=== PATIENT | male | born 1960 | race American Indian/Alaskan Native ===

== ENCOUNTER 2018-07-02 00:25 | Inpatient (IN) | payer OTHER ==
[2018-07-02 00:32] VITALS: O2SAT 98
--- NOTE | 2018-07-02 00:43 | ED PDOC ---
Psych Transfer Clearance - Clearance Statement Clearance Statement: Dr. Lopez reviewed vital signs, lab results and transfer papers. Patient clinically stable for psychiatric admission.
[2018-07-02] MEDS ORDERED: DiphenhydrAMINE 50 mg/ml Inj IM PRN (00:59)
[2018-07-02] MEDS ORDERED: Alum-Mag Hydrox-Simethicone Susp (30 mL) PO PRN (00:59)
[2018-07-02] MEDS ORDERED: Magnesium Hydroxide Susp 30 ml UD PO PRN (00:59)
--- NOTE | 2018-07-02 01:08 | PCM.BM ---
<Glynn Jaime P - Last Filed: 07/02/18 01:07> Treatment Plan Problems - Problems identified on initial assessmt Hopelessness/Helplessness Date Initiated: 07/02/18 Time Initiated: 01:07 Assessment reference: NA Status: Active Medication nonadherance Date Initiated: 07/02/18 Time Initiated: 01:07 Assessment reference: NA Status: Active Treatment assets and liabiliti Patient Assests: cooperative, ADL independent, negotiates basic needs, cognitively intact Patient Liabilities: live alone, financial problems, poor support system, substance abuse, medical problems - Milieu Protocol Maintain good personal hygiene: daily Encourage regular showers, daily Remind patient to perform daily oral care, daily Assist patient to perform ADL's Conduct patient checks and document Observation sheet: Q15 minutes Maintain personal safety: every shift Educate patient to report safety concerns to staff, every shift Monitor environment for contraband/sharps Medication safety: Monitor for expected outcome, potential side effects: every shift, Assess barriers to learning: every shift, Assess readiness for medication education: every shift <Angel Luis Shah J - Last Filed: 07/07/18 06:57> Family Contact Family involvement: Famlivic/SO not involved Family contact: Patient declines to allow family contact at present Family contact name: Pt denied. Family contacted how many times per week?: 0 - Goals for Treatment Patient goals for treatment: Pt reported that he would like medication management to address his depression, racing thoughts and intense mood swings. Pt reported that his suicidal ideations and intent have ceased and his sleep has already improved. Discharge/Continuing Care - Education Needs Education Needs: Patient Medication, Patient Diagnosis/Disease Process, Patient Coping Skills, Patient Anger Management skills, Patient Community resources, Patient Aftercare Safety Plan - Discharge Discharge Criteria: Tolerates medication w/o severe side effects, Free of Suicidal thoughts, Free of paranoid thoughts, Free of agitation, Normal sleep pattern, Ability to care for self, Reduction of target symptoms Discharge to:: Assisted, Other (Pt may be staying with friends once discharged. ) - Treatment Team Participation Patient/Family/SO Statement: 07/07/18 06:59 Pt seen in treatment team on 07/05/18. Pt reported that his sleep has improved on the Trazodone. Pt identified mood swings and continued depression as issues. Pt denied stressors for his depression initially, but spoke about his recent psychosocial losses (job and of father and friend). Pt denied current SI/HI and AVT hallucinations. Pt is oriented X4. Discussed with Family/SO: No Was Patient/Family/SO present at Treatment Team Meeting: Yes <Leslye Anderson - Last Filed: 07/07/18 09:44> - Diagnosis (1) Bipolar I disorder Status: Acute Interventions: harmacotherapy 07/07/18 09:43
[2018-07-02 08:17] LABS: BASO % 0.6 % (0.0-2.0); EOS # 0.2 K/uL (0.0-0.7); EOS % 2.6 % (0.0-4.0); HEMOGLOBIN 14.5 g/dL (12.0-18.0); LYMPH # 2.2 K/uL (1.0-4.3); LYMPH % 36.2 % (20.0-40.0); MEAN CELL VOLUME 96.1 fl (80.0-94.0); MEAN CORPUSCULAR HEMOGLOBIN 32.9 pg (27.0-31.0); MEAN CORPUSCULAR HGB CONC 34.3 g/dL (33.0-37.0); MEAN PLATELET VOLUME 8.1 fl (7.2-11.7); MONO # 0.7 K/uL (0.0-0.8); MONO % 11.6 % (0.0-10.0); NRBC % 0.1 % (0.0-0.0); RBC 4.4 Mil/uL (4.40-5.90); RED CELL DISTRIBUTION WIDTH 13.9 % (11.5-14.5); WHITE BLOOD COUNT 6.2 K/uL (4.8-10.8)
[2018-07-02 08:32] LABS: ALBUMIN 3.5 g/dL (3.5-5.0); ALT/SGPT 31 U/L (21-72); AST/SGOT 20 U/L (17-59); BLOOD UREA NITROGEN 16 mg/dl (9-20); CALCIUM 8.7 mg/dL (8.4-10.2); GFR NON-AFRICAN AMERICAN 52
[2018-07-02 08:57] LABS: T4 6.55 ug/dl (5.5-11.0)
--- NOTE | 2018-07-02 10:17 | PCM.PSYCH ---
Initial Psychiatric Evaluation - Initial Psychiatric Evaluation Type of Admission: Voluntary Legal Status: Capacity Chief Complaint (in patient's own words): "I tried to kill myself on the train tracks." Patient's Reaction to Hospitalization: HPI: 57 yo male w/ self reported h/o Bipolar Disorder, presents w/ worsening depression and suicidal ideation, w/ recent attempt by lying on train tracks (was talked off by passerby), worsening auditory hallucinations, sleep and appetite disturbances in the context of cocaine abuse. +Feelings of hopelessness/helplessness. PPHx: H/o 2 psychiatric hospitalizations, most recent in 2018. Reports being diagnosed w/ Bipolar Disorder 10 years ago. He reports h/o treatment w/ Depakote in the past. No current psychiatric treatment or follow-up. H/o prior suicide attempt 3 years ago by putting a gun in his mouth and pulling the trigger, but the gun jammed. PMHx: HTN, CAD (s/p 2 stents) on Plavix and Aspirin ALL: Fish SHx: Lives in a house, umemployed for 6 months, used to work as a printer in a [employer]; +Cocaine abuse, denies cig/alcohol use Current Medications: Active Medications Generic Name Dose Route Start Last Admin Trade Name Freq PRN Reason Stop Dose Admin Acetaminophen 650 mg 07/02/18 00:59 Tylenol 325mg Tab PO Q4 PRN pain level 4-7 Al Hydrox/Mg Hydrox/Simethicone 30 ml 07/02/18 00:59 Maalox Plus 30 Ml PO Q4 PRN Dyspepsia Amlodipine Besylate 5 mg 07/02/18 10:15 Norvasc PO DAILY [facility] Aspirin 81 mg 07/02/18 10:15 Ecotrin PO DAILY [facility] Clopidogrel Bisulfate 75 mg 07/02/18 10:15 Plavix PO DAILY [facility] Diphenhydramine HCl 50 mg 07/02/18 00:59 Benadryl IM Q6 PRN Extrapyramidal S/S Unable PO Diphenhydramine HCl 50 mg 07/02/18 00:59 Benadryl PO Q6 PRN Extrapyramidal Symptoms Diphenhydramine HCl 50 mg 07/02/18 01:03 Benadryl PO HS PRN Sleep Divalproex Sodium 500 mg 07/02/18 10:[address](*Bid*) PO BID [facility] Haloperidol 5 mg 07/02/18 00:59 Haldol PO Q4 PRN Agitation Haloperidol Lactate 5 mg 07/02/18 00:59 Haldol IM Q4 PRN Agitation, Unable to Take PO Lorazepam 2 mg 07/02/18 00:59 Ativan IM Q8 PRN Anxiety/Agitation,Unable PO Lorazepam 1 mg 07/02/18 00:59 Ativan PO Q8H PRN Anxiety/Agitation Magnesium Hydroxide 30 ml 07/02/18 00:59 Milk Of Magnesia PO HS PRN Constipation Risperidone 1 mg 07/02/18 22:00 Risperdal Tab PO HS [facility] Past Psychiatric History - Past Psychiatric History Previous Treatment History: Inpatient Pertinent Medical Hx (Current Medical&Sleep Prob, Allergies): Allergies Allergy/AdvReac Type Severity Reaction Status Date / Time FISH Allergy ITCHING Verified 07/02/18 03:07 Review of Systems - Psychiatric Psychiatric: As Per HPI, Abnormal Sleep Pattern, Anhedonia, Anxiety, Auditory Hallucinations, Behavioral Changes, Change in Appetite, Depression, Difficulty Concentrating, Hallucinations, Hopelessness, Irritability, Suicidal Ideation Mental Status Examination - Personal Presentation Personal Presentation: Looks stated age - Affect Affect: Constricted, Depressed - Motor Activity Motor Activity: Calm - Reliability in Providing Information Reliability in Providing Information: Good - Speech Speech: Organized, Coherent - Mood Mood: Depressed - Formal Thought Process Formal Thought Process: Hallucinations - Hallucinations/Delusions Hallucinations: Auditory - Obsessions/Compulsions Obsessions: No Compulsions: No - Cognitive Functions Orientation: Person, Place, Situation, Time Sensorium: Alert Attention/Concentration: Attentive Judgement: Intact, as evidence by: Insight regarding need for hospitalization Memory: Recent intact, as evidence by: Ability to recall events of the day, Remote intact, as evidenced by: Abilit to recall sig. life events, Remote intact, as evidenced by: Ability to recall historical events - Risk Risk: Suicidal - Strength & Assets Inventory Strength & Assets Inventory: Cooperative - Limitations Limitations: Living alone DSM 5 DX - DSM 5 DSM 5 Diagnosis: Bipolar Disorder w/ Psychotic Features vs Substance Induced Mood and Psychotic Disorders - Recommended/Plan of Treatment Treatment Recommendations and Plan of Treatment: Bipolar Disorder w/ Psychotic Features vs Substance Induced Mood and Psychotic Disorders -Admit to psychiatry unit -Individual and group therapy -Medicine consult -Start Depakote 500 mg PO BID -Start Risperdal 1 mg PO HS -Psychoeducation -Disposition planning Projected ELOS: 5-10 days Discharge Plan and Discharge Criteria: Discharge when patient is psychiatrically stable - Smoking Cessation Smoking Cessation Initiated: No Reason for not providing: Not indicated
[2018-07-02] MEDS: Divalproex 500 mg DR(BID formulation) PO SCH ×2 (11:08→17:16)
--- NOTE | 2018-07-02 12:48 | CP.PCM.CON ---
History of Present Illness - History of Present Illness History of Present Illness: 57 y/o male with PMH Bipolar disorder( diagnosed 10 years ago ) , HTN , CAD with 2 stents, cocaine abuse ( last use 3 days ago) , admitted to psych unit for management of worsening depression and suicidal ideation .As per patient he was diagnosed with bipolar disorder 10 years ago and has been on treatment but it is not working . He has prior suicidal attempts and psychiatric admission.This time patient admitted again for suicidal ideation , lying on the train tracks but changing his mind from bystanders and going to [facility] for help. At present feeling well physically , denies any chest pain , SOB, palpitations, PND, orthopnea , urinary symptoms or changes in bowel movements Allergies ; Fish PMH ; Bipolar disorder , HTN, CAD s/p stent, dyslipidemia Medications; Plavix , ASA, norvasc, Lipitor Surgery:None Family history:none Social history :Lives in [place] with a freind, single has no children , does not work , smokes 3 cigg/day , denies ETOH use , uses cocaine ( last use 3 days ago) ROS ; 12 point review of system negative except above Code status : full PMD ;Eugene Caruso Review of Systems - Review of Systems All systems: reviewed and no additional remarkable complaints except Past Patient History - Infectious Disease Hx of Infectious Diseases: None - Tetanus Immunizations Tetanus Immunization: Unknown - Past Medical History & Family History Past Medical History?: Yes Past Family History: Reviewed and not pertinent - Past Social History Smoking Status: Light Smoker < 10 Cigarettes Daily Chewing Tobacco Use: No Cigar Use: No Alcohol: None Drugs: Cocaine Home Situation {Lives}: Friends Domestic Violence: Negative - CARDIAC Hx Hypercholesterolemia: Yes Hx Hypertension: Yes - GENITOURINARY/GYNECOLOGICAL Hx Sexually Transmitted Disorders: (denies + for trichomonas in UA) - PSYCHIATRIC Hx Depression: Yes Hx Substance Use: Yes (cocaine) - SURGICAL HISTORY Hx Coronary Stent: Yes - ANESTHESIA Hx Anesthesia: Yes Hx Anesthesia Reactions: No Hx Malignant Hyperthermia: No Has any member of the family had a problem w/ anesthesia?: No Meds Allergies/Adverse Reactions: Allergies Allergy/AdvReac Type Severity Reaction Status Date / Time FISH Allergy ITCHING Verified 07/02/18 03:07 - Medications Medications: Current Medications Acetaminophen (Tylenol 325mg Tab) 650 mg PO Q4 PRN PRN Reason: pain level 4-7 Al Hydrox/Mg Hydrox/Simethicone (Maalox Plus 30 Ml) 30 ml PO Q4 PRN PRN Reason: Dyspepsia Amlodipine Besylate (Norvasc) 5 mg PO DAILY [facility] Last Admin: 07/02/18 11:09 Dose: 5 mg Aspirin (Ecotrin) 81 mg PO DAILY [facility] Last Admin: 07/02/18 11:09 Dose: 81 mg Clopidogrel Bisulfate (Plavix) 75 mg PO DAILY [facility] Last Admin: 07/02/18 11:08 Dose: 75 mg Diphenhydramine HCl (Benadryl) 50 mg IM Q6 PRN PRN Reason: Extrapyramidal S/S Unable PO Diphenhydramine HCl (Benadryl) 50 mg PO Q6 PRN PRN Reason: Extrapyramidal Symptoms Diphenhydramine HCl (Benadryl) 50 mg PO HS PRN PRN Reason: Sleep Divalproex Sodium (Depakote Dr(*Bid*)) 500 mg PO BID [facility] Last Admin: 07/02/18 11:08 Dose: 500 mg Haloperidol (Haldol) 5 mg PO Q4 PRN PRN Reason: Agitation Haloperidol Lactate (Haldol) 5 mg IM Q4 PRN PRN Reason: Agitation, Unable to Take PO Lorazepam (Ativan) 2 mg IM Q8 PRN PRN Reason: Anxiety/Agitation,Unable PO Lorazepam (Ativan) 1 mg PO Q8H PRN PRN Reason: Anxiety/Agitation Magnesium Hydroxide (Milk Of Magnesia) 30 ml PO HS PRN PRN Reason: Constipation Risperidone (Risperdal Tab) 1 mg PO HS [facility] Physical Exam - Constitutional Appears: Non-toxic, No Acute Distress - Head Exam Head Exam: ATRAUMATIC, NORMAL INSPECTION, NORMOCEPHALIC - Eye Exam Eye Exam: EOMI, Normal appearance, PERRL Pupil Exam: NORMAL ACCOMODATION - ENT Exam ENT Exam: Mucous Membranes Moist, Normal Exam - Neck Exam Neck exam: Positive for: Full Rom, Normal Inspection - Respiratory Exam Respiratory Exam: Clear to Auscultation Bilateral, NORMAL BREATHING PATTERN. absent: Rales, Rhonchi, Wheezes - Cardiovascular Exam Cardiovascular Exam: REGULAR RHYTHM, RRR, +S1, +S2. absent: JVD - GI/Abdominal Exam GI & Abdominal Exam: Normal Bowel Sounds, Soft. absent: Distended, Guarding, Re bound, Tenderness - Rectal Exam Rectal Exam: Deferred - Extremities Exam Extremities exam: Positive for: normal capillary refill, normal inspection. Negative for: calf tenderness, pedal edema - Back Exam Back exam: NORMAL INSPECTION - Neurological Exam Neurological exam: Alert, CN II-XII Intact, Oriented x3 - Psychiatric Exam Psychiatric exam: Normal Affect - Skin Skin Exam: Dry, Intact, Normal Color, Warm Results - Vital Signs Recent Vital Signs: Last Vital Signs Temp 98.2 F 07/02/18 09:00 Pulse 72 07/02/18 09:00 Resp 19 07/02/18 09:00 BP 161/102 H 07/02/18 11:09 Pulse Ox 98 07/02/18 00:29 - Labs Result Diagrams: 07/02/18 07:30 07/02/18 07:30 Labs: Laboratory Results - last 24 hr 07/02/18 07/02/18 07/02/18 07:30 07:30 07:30 WBC 6.2 RBC 4.40 Hgb 14.5 Hct 42.2 MCV 96.1 H MCH 32.9 H MCHC 34.3 RDW 13.9 Plt Count 274 MPV 8.1 Neut % (Auto) 49.0 L Lymph % (Auto) 36.2 [place] % (Auto) 11.6 H Eos % (Auto) 2.6 Baso % (Auto) 0.6 Neut # (Auto) 3.0 Lymph # (Auto) 2.2 [place] # (Auto) 0.7 Eos # (Auto) 0.2 Baso # (Auto) 0.0 Sodium 139 Potassium 3.9 Chloride 104 Carbon Dioxide 26 Anion Gap 13 BUN 16 Creatinine 1.4 Est GFR ( Amer) > 60 Est GFR (Non-Af Amer) 52 Random Glucose 93 Calcium 8.7 Total Bilirubin 0.4 AST 20 ALT 31 Alkaline Phosphatase 132 H Total Protein 6.9 Albumin 3.5 Globulin 3.4 Albumin/Globulin Ratio 1.0 Triglycerides 75 Cholesterol 143 LDL Cholesterol Direct 86 HDL Cholesterol 37 Thyroxine (T4) 6.55 TSH 3rd Generation 0.73 Assessment & Plan - Assessment and Plan (Free Text) Assessment: 57 y/o male with PMH HTN, dyslipidemia, bipolar disorde , CAd admitted for worsening depression with suicidal thoughts and ideation Medicine consulted for management . 1. Psychiatric disorder / bipolar with depression management as per psych 2.Hypertension on Norvasc 3. CAD with stents on Statin , ASa and plavix
[2018-07-02 19:43] LABS: SQUAMOUS EPITHIAL < 1 /hpf (0-5); URINE BILIRUBIN NEGATIVE (NEGATIVE); URINE BLOOD NEGATIVE (NEGATIVE); URINE CLARITY CLEAR (Clear); URINE COLOR STRAW (YELLOW); URINE GLUCOSE (UA) NEG (NEGATIVE); URINE LEUKOCYTE ESTERASE NEG Leu/uL (Negative); URINE PROTEIN NEGATIVE (NEGATIVE); URINE UROBILINOGEN 0.2-1.0 mg/dL (0.2-1.0)
[2018-07-03] MEDS: Divalproex 500 mg DR(BID formulation) PO SCH ×2 (12:21→17:12)
--- NOTE | 2018-07-03 14:37 | PCM.PYCHPN ---
Psychiatric Progress Note - Psychiatric Progress Note Patient seen today, length of contact: pt evaluated discussed with team chart reviewed Patient Chief Complaint: I am feeling down Problems Identified/Issues Discussed: pt evaluated, presenting with depressed mood and affect, feeling hopeless and helpless, related that to recent loss of his father, loosing his job and his current living situation , discussed with patient starting zoloft, motivational therapy provided discussing effect of cocaine use on current mental status, encouraged pt to attend groups, pt denied current active thoughts of self harm on the unit , denied perceptual disturbances DSM 5 Symptoms Update: bipolar disorder depressed cocaine use disorder Medication Change: Yes (start zoloft) Medical Record Reviewed: Yes Mental Status Examination - Cognitive Function Orientation: Person, Place, Situation, Time Memory: Intact Attention: WNL Concentration: WNL Association: WNL Fund of Knowledge: WNL Decription of patient's judgement and insights: partial insight, poor judgment - Mood Mood: Depressed - Affect Affect: Constricted, Depressed - Speech Speech: Soft - Formal Thought Process Formal Thought Process: Circumstantial Psychotic Thoughts and Behaviors: pt denied any current psychotic symptoms - Suicidal Ideation Suicidal Ideation: No - Homicidal Ideation Homicidal Ideation: No Goal/Treatment Plan - Goal/Treatment Plan Need for Continued Stay: Severe depression anxiety, Discharge may exacerbated symptoms Progress Toward Problem(s) and Goals/Treatment Plan: depakote 500mg bid start zoloft 25mg daily motivational, group and supportive therapy
[2018-07-04] MEDS: Divalproex 500 mg DR(BID formulation) PO SCH ×2 (10:09→18:03)
--- NOTE | 2018-07-04 15:23 | PCM.PYCHPN ---
Psychiatric Progress Note - Psychiatric Progress Note Patient seen today, length of contact: pt evaluated discussed with team chart reviewed Patient Chief Complaint: I still have suicidal thoughts Problems Identified/Issues Discussed: pt evaluated continues to present with depressed mood and affect, continues to report passive suicidal ideation feeling hopeless and helpless, discussed with patient increasing dose of zoloft, pt also reported poor slep with early insomnia discussed starting trazodone , motivational therapy provided discussing effect of cocaine use on current mental status, encouraged pt to attend groups, pt denied current active thoughts of self harm on the unit , denied perceptual disturbances Medication Change: Yes (increase zoloft) Medical Record Reviewed: Yes Mental Status Examination - Cognitive Function Orientation: Person, Place, Situation, Time Memory: Intact Attention: WNL Concentration: WNL Association: WNL Fund of Knowledge: WNL Decription of patient's judgement and insights: partial insight, poor judgment - Mood Mood: Depressed - Affect Affect: Constricted, Depressed - Speech Speech: Soft - Formal Thought Process Formal Thought Process: Circumstantial Psychotic Thoughts and Behaviors: pt denied any current psychotic symptoms - Suicidal Ideation Suicidal Ideation: No - Homicidal Ideation Homicidal Ideation: No Goal/Treatment Plan - Goal/Treatment Plan Need for Continued Stay: Severe depression anxiety, Discharge may exacerbated symptoms Progress Toward Problem(s) and Goals/Treatment Plan: depakote 500mg bid increase zoloft 50mg daily trazodone 100mg qhs motivational, group and supportive therapy
[2018-07-05] MEDS: Divalproex 500 mg DR(BID formulation) PO SCH ×2 (10:00→19:09)
--- NOTE | 2018-07-05 13:50 | PCM.PYCHPN ---
Psychiatric Progress Note - Psychiatric Progress Note Patient seen today, length of contact: pt evaluated discussed with team chart reviewed Patient Chief Complaint: I slept better yesterday Problems Identified/Issues Discussed: pt evaluated evaluated with treatment team, reported improved sleep with trazodone, continues to present with depressed mood and affect, relates that to his current financial difficulties and instability of the living situation, pt declined to be on abilify, discussed increasing zoloft and depakote for mood stabilization, pt denied any current side effects encouraged pt to attend groups, pt denied current active thoughts of self harm on the unit , denied perceptual disturbances DSM 5 Symptoms Update: bipolar disorder depressed cocaine use disorder Medication Change: Yes (increase zoloft) Medical Record Reviewed: Yes Mental Status Examination - Cognitive Function Orientation: Person, Place, Situation, Time Memory: Intact Attention: WNL Concentration: WNL Association: WNL Fund of Knowledge: WNL Decription of patient's judgement and insights: partial insight, poor judgment - Mood Mood: Depressed - Affect Affect: Constricted, Depressed - Speech Speech: Soft - Formal Thought Process Formal Thought Process: Circumstantial Psychotic Thoughts and Behaviors: pt denied any current psychotic symptoms - Suicidal Ideation Suicidal Ideation: No - Homicidal Ideation Homicidal Ideation: No Goal/Treatment Plan - Goal/Treatment Plan Need for Continued Stay: Severe depression anxiety, Discharge may exacerbated symptoms Progress Toward Problem(s) and Goals/Treatment Plan: depakote 500mg bid increase zoloft 50mg daily trazodone 100mg qhs motivational, group and supportive therapy
[2018-07-06] MEDS: Divalproex 500 mg DR(BID formulation) PO SCH ×2 (08:39→17:40)
--- NOTE | 2018-07-06 15:01 | PCM.PYCHPN ---
Psychiatric Progress Note - Psychiatric Progress Note Patient seen today, length of contact: pt evaluated discussed with team chart reviewed Patient Chief Complaint: I am getting better Problems Identified/Issues Discussed: pt evaluated , reported improved sleep, mood less depressed, affect less constricted, no reported side effects of medications, encouraged pt to attend groups, pt denied current active thoughts of self harm on the unit , denied perceptual disturbances DSM 5 Symptoms Update: bipolar disorder depressed cocaine abuse Medication Change: No (increase zoloft) Medical Record Reviewed: Yes Mental Status Examination - Cognitive Function Orientation: Person, Place, Situation, Time Memory: Intact Attention: WNL Concentration: WNL Association: WNL Fund of Knowledge: [facility] Decription of patient's judgement and insights: partial insight, poor judgment - Mood Mood: Depressed - Affect Affect: Constricted - Speech Speech: Appropriate - Formal Thought Process Formal Thought Process: No Impairment Psychotic Thoughts and Behaviors: pt denied any current psychotic symptoms - Suicidal Ideation Suicidal Ideation: No - Homicidal Ideation Homicidal Ideation: No Goal/Treatment Plan - Goal/Treatment Plan Need for Continued Stay: Severe depression anxiety, Discharge may exacerbated symptoms Progress Toward Problem(s) and Goals/Treatment Plan: depakote 500mg bid zoloft 50mg daily trazodone 100mg qhs motivational, group and supportive therapy
[2018-07-06 17:40] VITALS: RESP 18
[2018-07-07] MEDS: Divalproex 500 mg DR(BID formulation) PO SCH (09:32)
[2018-07-07 09:34] VITALS: BP 146/88; PULSE 77
[2018-07-07 09:57] VITALS: TEMP 98.8
--- NOTE | 2018-07-07 16:03 | PCM.PYCHDC ---
Mental Status Examination - Mental Status Examination Orientation: Person, Place, Situation Memory: Intact Mood: Neutral Affect: Broad Speech: Appropriate Attention: WNL Concentration: WNL Association: WNL Fund of Knowledge: WNL Formal Thought Process: No Impairment Description of patient's judgement and insight: partial insight, poor judgment Psychotic Thoughts and Behaviors: pt denied any current psychotic symptoms Suicidal Ideation: No Current Homicidal Ideation?: No Discharge Summary - Discharge Note Reason for Hospitalization: 57 yo male w/ self reported h/o Bipolar Disorder, presents w/ worsening depression and suicidal ideation, w/ recent attempt by lying on train tracks (was talked off by passerby), worsening auditory hallucinations, sleep and appetite disturbances in the context of cocaine abuse. +Feelings of hopelessness/helplessness. Consultations:: List each consultation separately and include: 1. Reason for request. 2. Findings. 3. Follow-up Summary of Hospital Course include:: 1. Description of specific treatment plan utilized for patients during their course of treatmen. 2. Summarize the time- course for resolution of acute symptoms and/or regressed behaviors. 3. Describe issues identified and worked on during hospitalization. 4. Describe medication utilized. 5. Describe medical problems identified and treated. 6. Reassessment of suicide risk Summary of Hospital Course: pt on admission was sttarted on depakote for mood stabilization , zoloft for depression motivational therapy provided in reference to cocaine use pt was compliant with treatment, no reported side effects of medications on discharge mental status wa stable pt denied any current suicidal or homicidal ideation denied perceptual disturbances - Diagnosis (1) Bipolar I disorder Status: Acute - Final Diagnosis (DSM 5) Condition upon Discharge: STABLE DSM 5: bipolar I disorder cocaine induced psychosis cocaine abuse Disposition: HOME/ ROUTINE Follow-up Treatment Plan: depakote 500mg bid zoloft 50mg daily trazodone 100mg qhs motivational, group and supportive therapy Prescriptions/Medication Reconciliation: Divalproex [Depakote DR(*BID*)] 500 mg PO BID 30 Days #60 tcp Sertraline [Zoloft] 50 mg PO DAILY 30 Days #30 tab traZODone [Desyrel] 100 mg PO HS 30 Days #30 tab - Antipsychotic Medications Pt discharged on 2 or more routine antipsychotic medications: No
== END 2018-07-07 12:08 | disposition home or self-care (01) | DRG 430 ==
LOC: H.ER 00:25 → H.ERHOLD 00:42 → H.PSYCH 00:57
PROVIDERS: ADMIT Psychiatry & Neurology Psychiatry; ATTEND Psychiatry & Neurology Psychiatry
PROC: GZHZZZZ Group Psychotherapy (ICD-10-PCS; principal; 2018-07-02)
PROC: GZ56ZZZ Individual Psychotherapy, Supportive (ICD-10-PCS; 2018-07-02)
PROC: HZ57ZZZ Individual Psychotherapy for Substance Abuse Treatment, Motivational Enhancement (ICD-10-PCS; 2018-07-02)
DX: F31.9 Bipolar disorder, unspecified (principal); F14.10 Cocaine abuse, uncomplicated; R45.851 Suicidal ideations; I25.10 Atherosclerotic heart disease of native coronary artery without angina pectoris; Z95.5 Presence of coronary angioplasty implant and graft; G47.00 Insomnia, unspecified; E78.00 Pure hypercholesterolemia, unspecified; E78.5 Hyperlipidemia, unspecified; Z91.013 Allergy to seafood; I10 Essential (primary) hypertension; Z79.02 Long term (current) use of antithrombotics/antiplatelets; Z79.82 Long term (current) use of aspirin; F17.210 Nicotine dependence, cigarettes, uncomplicated

== ENCOUNTER 2018-07-13 00:21 | Inpatient (IN) | payer OTHER ==
[2018-07-13 00:37] VITALS: O2SAT 98
--- NOTE | 2018-07-13 00:42 | ED PDOC ---
Psych Transfer Clearance - Clearance Statement Clearance Statement: Lab results and transfer papers reviewed on previous shift by Dr Efren Singh. On arrival to ED vital signs are stable. Patient clinically stable for psychiatric admission.
--- NOTE | 2018-07-13 01:20 | PCM.BM ---
<Estevan Loyola - Last Filed: 07/13/18 01:18> Treatment Plan Problems - Problems identified on initial assessmt Hopelessness/Helplessness Date Initiated: 07/13/18 Time Initiated: Assessment reference: NA Status: Active Altered Sleep Patterns Date Initiated: 07/13/18 Time Initiated: :20 Assessment reference: NA Status: Active Medication nonadherence Date Initiated: 07/13/18 Time Initiated: Assessment reference: NA Status: Active Treatment assets and liabiliti Patient Assests: cooperative, ADL independent, negotiates basic needs, cognitively intact Patient Liabilities: financial problems, poor support system, substance abuse, medical problems, other (Homeless) - Milieu Protocol Maintain good personal hygiene: every shift Encourage regular showers, every shift Remind patient to perform daily oral care, every shift Assist patient to perform ADL's Conduct patient checks and document Observation sheet: Q15 minutes Maintain personal safety: every shift Educate patient to report safety concerns to staff, every shift Monitor environment for contraband/sharps Medication safety: Monitor for expected outcome, potential side effects: every shift, Assess barriers to learning: every shift, Assess readiness for medication education: every shift <Wendie Cast - Last Filed: 07/13/18 09:34> - Diagnosis (1) Bipolar I disorder Status: Acute Interventions: Medication management, Individual and group therapy, Psychoeducation 07/13/18 09:34 (2) Cocaine use disorder Status: Acute Interventions: Medication management, Individual and group therapy, Psychoeducation 07/13/18 09:34 <Isatu Vargas - Last Filed: 07/14/18 14:21> Family Contact Family involvement: Famliy/SO not involved Family contact: Patient declines to allow family contact at present Discharge/Continuing Care - Education Needs Education Needs: Patient Medication, Patient Diagnosis/Disease Process, Patient Coping Skills, Patient Community resources, Patient Health Practices/Safety, Patient Personal Hygiene/Grooming, Patient Aftercare Safety Plan - Discharge Discharge Criteria: Tolerates medication w/o severe side effects, Free of Suicidal thoughts, Normal sleep pattern, Ability to care for self, Reduction of target symptoms Discharge to:: Home, Alf - Additional Comments 07/14/18 14:19 Pt seen and discussed in team meeting. Reason for hospitalization reviewed and discussed. Pt reported he was referred to [facility] due to worsening depression and suicide thoughts with plan to ingest rat poison. Pt also reported that he was hearing voices to hurt himself. Pt reported that his girlfriend called 911. Pt reported hearing voices all the time. Pt reported using cocaine and when inquired about frequency, pt stated I dont use often. Pt reported that his sleep is lousy and his appetite is ok. Pt reported feeling depressed and anxious. Pt is non-compliant with outpatient treatment and prescribed medications. Log Carrier Operator inquired about discrepancies in pts chart in gards to housing and stable living conditions. Pts previous chart from admission on 07/07/2018 reflected that pt was residing with his sister in [place]; [facility] chart reflects that pt resides in [place] with girlfriend and also hx of homelessness. Pt denied being homeless and reported that he resides with his friend in [place], [place]. Pt reported having people that look out for me when asked about financial resources. pt's social and medical issues reviewed. Pt's medications reviewed. Tx plan reviewed and discussed, pt verbalized agreement to the following: Q15, daily psychiatric evaluation, filling winder management, activity and clinical group participation, and SW follow up. Pt reported he galloway snot wish for anyone to be contacted regarding his care. Pt reported he has no collateral information to be provided. SW to continue to follow case. - Treatment Team Participation Discussed with Family/SO: No Was Patient/Family/SO present at Treatment Team Meeting: Yes
[2018-07-13] MEDS ORDERED: Magnesium Hydroxide Susp 30 ml UD PO PRN (01:22)
[2018-07-13] MEDS ORDERED: DiphenhydrAMINE 50 mg/ml Inj IM PRN (01:22)
[2018-07-13] MEDS ORDERED: Alum-Mag Hydrox-Simethicone Susp (30 mL) PO PRN (01:22)
[2018-07-13 07:49] LABS: BASO % 0.3 % (0.0-2.0); EOS # 0.2 K/uL (0.0-0.7); EOS % 3.4 % (0.0-4.0); HEMOGLOBIN 14.8 g/dL (12.0-18.0); LYMPH # 2.9 K/uL (1.0-4.3); LYMPH % 42.7 % (20.0-40.0); MEAN CELL VOLUME 99.3 fl (80.0-94.0); MEAN CORPUSCULAR HEMOGLOBIN 31.9 pg (27.0-31.0); MEAN CORPUSCULAR HGB CONC 32.1 g/dL (33.0-37.0); MEAN PLATELET VOLUME 8.5 fl (7.2-11.7); MONO # 0.8 K/uL (0.0-0.8); MONO % 11.2 % (0.0-10.0); NEUT # 2.9 K/uL (1.8-7.0); NEUT % 42.4 % (50.0-75.0); NRBC % 0.2 % (0.0-0.0); RBC 4.66 Mil/uL (4.40-5.90); RED CELL DISTRIBUTION WIDTH 14.3 % (11.5-14.5); WHITE BLOOD COUNT 6.7 K/uL (4.8-10.8)
[2018-07-13 08:06] LABS: ALBUMIN 3.5 g/dL (3.5-5.0); ALT/SGPT 27 U/L (21-72); AST/SGOT 24 U/L (17-59); BLOOD UREA NITROGEN 15 mg/dl (9-20); CALCIUM 8.7 mg/dL (8.4-10.2); GFR NON-AFRICAN AMERICAN > 60; HDL CHOLESTEROL 45 MG/DL (30-70)
[2018-07-13 08:17] LABS: LDL CHOLESTEROL 96 mg/dL (0-129)
[2018-07-13 08:21] LABS: T4 6.79 ug/dl (5.5-11.0)
--- NOTE | 2018-07-13 09:36 | PCM.PSYCH ---
Initial Psychiatric Evaluation - Initial Psychiatric Evaluation Type of Admission: Voluntary Legal Status: Capacity Chief Complaint (in patient's own words): "I wanted to kill myself by taking rat poison." Patient's Reaction to Hospitalization: HPI: 57 yo male w/ h/o Bipolar Disorder and Cocaine Use disorder, recently admitted to [facility] (07/02/18-07/07/18), presents w/ worsening depression and suicidal ideation to overdose on rat, w/ recent attempt 3 days ago by taking an excess of cocaine to try to induce a heart attack, worsening auditory hallucinations (CAH to kill himself), sleep and appetite disturbances in the context of continued cocaine abuse. +Feelings of hopelessness/helplessness. PPHx: H/o 3 psychiatric hospitalizations, most recent at [facility] (07/02/18-07/07/18). He was discharged on Depakote 500 mg PO BID, Zoloft 50 mg PO Daily and Trazodone 100 mg PO HS at that time. Reports being diagnosed w/ Bipolar Disorder 10 years ago. H/o prior suicide attempt 3 years ago by putting a gun in his mouth and pulling the trigger, but the gun jammed. PMHx: HTN, CAD (s/p 2 stents) on Plavix and Aspirin ALL: Fish, [place] SHx: Homeless, umemployed for 6 months, used to work as a printer in a printing factory; +Cocaine abuse, denies alcohol use; smokes 3 cig/day Current Medications: Active Medications Generic Name Dose Route Start Last Admin Trade Name Freq PRN Reason Stop Dose Admin Acetaminophen 650 mg 07/13/18 01:22 Tylenol 325mg Tab PO Q4 PRN Pain, moderate (4-7) Al Hydrox/Mg Hydrox/Simethicone 30 ml 07/13/18 01:22 Maalox Plus 30 Ml PO Q4 PRN Dyspepsia Amlodipine Besylate 10 mg 07/13/18 09:00 07/13/18 08:47 Norvasc PO 10 mg DAILY GRISEL Administration Aspirin 81 mg 07/13/18 09:00 07/13/18 08:46 Ecotrin PO 81 mg DAILY GRISEL Administration Atorvastatin Calcium 10 mg 07/13/18 09:00 07/13/18 08:47 Lipitor PO 10 mg DAILY GRISEL Administration Clopidogrel Bisulfate 75 mg 07/13/18 09:00 07/13/18 08:46 Plavix PO 75 mg DAILY GRISEL Administration Diphenhydramine HCl 50 mg 07/13/18 01:22 Benadryl IM Q6 PRN Extrapyramidal S/S Unable PO Diphenhydramine HCl 50 mg 07/13/18 01:22 Benadryl PO Q6 PRN Extrapyramidal Symptoms Diphenhydramine HCl 50 mg 07/13/18 01:22 Benadryl PO HS PRN Sleep Divalproex Sodium 500 mg 07/13/18 09:30 Depdavid Thompson(*Bid*) PO BID GRISEL Haloperidol 5 mg 07/13/18 01:22 Haldol PO Q4 PRN Agitation Haloperidol Lactate 5 mg 07/13/18 01:22 Haldol IM Q4 PRN Agitation, Unable to Take PO Lorazepam 1 mg 07/13/18 01:22 Ativan IM Q8 PRN Anxiety/Agitation,Unable PO Lorazepam 1 mg 07/13/18 01:22 Ativan PO Q8 PRN Anxiety/Agitation Magnesium Hydroxide 30 ml 07/13/18 01:22 Milk Of Magnesia PO HS PRN Constipation Risperidone 1 mg 07/13/18 22:00 Risperdal Tab PO HS GRISEL Sertraline HCl 100 mg 07/13/18 09:30 Zoloft PO DAILY GRISEL Trazodone HCl 100 mg 07/13/18 09:28 Desyrel PO HS PRN Insomnia Past Psychiatric History - Past Psychiatric History Previous Treatment History: Inpatient Pertinent Medical Hx (Current Medical&Sleep Prob, Allergies): Allergies Allergy/AdvReac Type Severity Reaction Status Date / Time FISH Allergy ITCHING Verified 07/02/18 03:07 turkey Allergy RASH Verified 07/13/18 02:14 Aspirin [Ecotrin] 81 mg PO DAILY tabec 07/07/18 Atorvastatin [Lipitor] 10 mg PO DAILY tab 07/07/18 Clopidogrel [Plavix] 75 mg PO DAILY tab 07/07/18 Divalproex [Davion THOMPSON(*BID*)] 500 mg PO BID 30 Days #60 tcp 07/07/18 Sertraline [Zoloft] 50 mg PO DAILY 30 Days #30 tab 07/07/18 amLODIPine [Norvasc] 10 mg PO DAILY tab 07/07/18 traZODone [Desyrel] 100 mg PO HS 30 Days #30 tab 07/07/18 Review of Systems - Psychiatric Psychiatric: As Per HPI, Abnormal Sleep Pattern, Anhedonia, Anxiety, Auditory Hallucinations, Change in Appetite, Depression, Difficulty Concentrating, Hallucinations, Hopelessness, Irritability, Mood Swings, Suicidal Ideation Mental Status Examination - Personal Presentation Personal Presentation: Looks stated age - Affect Affect: Constricted, Depressed - Motor Activity Motor Activity: Calm - Reliability in Providing Information Reliability in Providing Information: Fair - Speech Speech: Organized, Coherent - Mood Mood: Depressed - Formal Thought Process Formal Thought Process: No Impairment Additional comments: Last heard AH last night - Obsessions/Compulsions Obsessions: No Compulsions: No - Cognitive Functions Orientation: Person, Place, Situation, Time Sensorium: Alert Attention/Concentration: Attentive Estimate of Intelligence: Average Judgement: Intact, as evidence by: Insight regarding need for hospitalization Memory: Recent intact, as evidence by: Ability to recall events of the day, Remote intact, as evidenced by: Abilit to recall sig. life events, Remote intact, as evidenced by: Ability to recall historical events - Risk Risk: Suicidal - Strength & Assets Inventory Strength & Assets Inventory: Cooperative - Limitations Limitations: Other (Homelessness; Poverty) DSM 5 DX - DSM 5 DSM 5 Diagnosis: Bipolar Disorder; Cocaine Use Disorder - Recommended/Plan of Treatment Treatment Recommendations and Plan of Treatment: Bipolar Disorder; Cocaine Use Disorder -Admit to psychiatry unit -Individual and group therapy -Medicine consult -Continue Depakote 500 mg PO BID; will check VPA level -Increase Zoloft -Start Risperdal 1 mg PO HS -Psychoeducation -Disposition planning Projected ELOS: 5-10 days Discharge Plan and Discharge Criteria: Discharge when patient is psychiatrically stable - Smoking Cessation Smoking Cessation Initiated: No Reason for not providing: Patient declined
--- NOTE | 2018-07-13 11:18 | CP.PCM.CON ---
History of Present Illness - History of Present Illness History of Present Illness: 57 yo male with history of Bipolar DO, HTN, CAD and Cocaine Abuse admitted to Psyche unit because of worsening depression and suicidal ideation. Patient requested that his diet be switched to regular. Review of Systems - Review of Systems All systems: reviewed and no additional remarkable complaints except (aside from those mentioned above, 12 point system review were negative by me) Past Patient History - Infectious Disease Hx of Infectious Diseases: None - Tetanus Immunizations Tetanus Immunization: Unknown - Past Medical History & Family History Past Medical History?: Yes - Past Social History Smoking Status: Light Smoker < 10 Cigarettes Daily Chewing Tobacco Use: No Cigar Use: No Alcohol: None Drugs: Cocaine Home Situation {Lives}: Friends - CARDIAC Hx Hypercholesterolemia: Yes Hx Hypertension: Yes - GENITOURINARY/GYNECOLOGICAL Hx Sexually Transmitted Disorders: (denies + for trichomonas in UA) - PSYCHIATRIC Hx Substance Use: Yes (cocaine) - SURGICAL HISTORY Hx Coronary Stent: Yes - ANESTHESIA Hx Anesthesia: Yes Hx Anesthesia Reactions: No Hx Malignant Hyperthermia: No Meds Allergies/Adverse Reactions: Allergies Allergy/AdvReac Type Severity Reaction Status Date / Time FISH Allergy ITCHING Verified 07/02/18 03:07 turkey Allergy RASH Verified 07/13/18 02:14 - Medications Medications: Current Medications Acetaminophen (Tylenol 325mg Tab) 650 mg PO Q4 PRN PRN Reason: Pain, moderate (4-7) Al Hydrox/Mg Hydrox/Simethicone (Maalox Plus 30 Ml) 30 ml PO Q4 PRN PRN Reason: Dyspepsia Amlodipine Besylate (Norvasc) 10 mg PO DAILY [facility] Last Admin: 07/13/18 08:47 Dose: 10 mg Aspirin (Ecotrin) 81 mg PO DAILY [facility] Last Admin: 07/13/18 08:46 Dose: 81 mg Atorvastatin Calcium (Lipitor) 10 mg PO DAILY [facility] Last Admin: 07/13/18 08:47 Dose: 10 mg Clopidogrel Bisulfate (Plavix) 75 mg PO DAILY [facility] Last Admin: 07/13/18 08:46 Dose: 75 mg Diphenhydramine HCl (Benadryl) 50 mg IM Q6 PRN PRN Reason: Extrapyramidal S/S Unable PO Diphenhydramine HCl (Benadryl) 50 mg PO Q6 PRN PRN Reason: Extrapyramidal Symptoms Diphenhydramine HCl (Benadryl) 50 mg PO HS PRN PRN Reason: Sleep Divalproex Sodium (Depakote Dr(*Bid*)) 500 mg PO BID GRISEL Haloperidol (Haldol) 5 mg PO Q4 PRN PRN Reason: Agitation Haloperidol Lactate (Haldol) 5 mg IM Q4 PRN PRN Reason: Agitation, Unable to Take PO Lorazepam (Ativan) 1 mg IM Q8 PRN PRN Reason: Anxiety/Agitation,Unable PO Lorazepam (Ativan) 1 mg PO Q8 PRN PRN Reason: Anxiety/Agitation Magnesium Hydroxide (Milk Of Magnesia) 30 ml PO HS PRN PRN Reason: Constipation Risperidone (Risperdal Tab) 1 mg PO HS GRISEL Sertraline HCl (Zoloft) 100 mg PO DAILY GRISEL Physical Exam - Constitutional Appears: No Acute Distress - Head Exam Head Exam: ATRAUMATIC - Eye Exam Eye Exam: absent: Scleral icterus - ENT Exam ENT Exam: Mucous Membranes Moist - Neck Exam Neck exam: Negative for: Meningismus - Respiratory Exam Respiratory Exam: absent: Rales, Rhonchi, Wheezes, Respiratory Distress - Cardiovascular Exam Cardiovascular Exam: REGULAR RHYTHM, +S1, +S2 - GI/Abdominal Exam GI & Abdominal Exam: Soft. absent: Tenderness - Rectal Exam Rectal Exam: Deferred - Extremities Exam Extremities exam: Negative for: pedal edema - Back Exam Back exam: NORMAL INSPECTION - Neurological Exam Neurological exam: Alert, Oriented x3 - Psychiatric Exam Psychiatric exam: Normal Affect - Skin Skin Exam: Dry, Intact Results - Vital Signs Recent Vital Signs: Last Vital Signs Temp 97.7 F 07/13/18 05:35 Pulse 57 L 07/13/18 08:47 Resp 18 07/13/18 05:35 BP 138/94 H 07/13/18 08:47 Pulse Ox 98 07/13/18 00:30 - Labs Result Diagrams: 07/13/18 06:10 07/13/18 06:10 Labs: Laboratory Results - last 24 hr 07/13/18 07/13/18 06:10 06:10 WBC 6.7 RBC 4.66 Hgb 14.8 Hct 46.3 MCV 99.3 H D MCH 31.9 H MCHC 32.1 L RDW 14.3 Plt Count 261 MPV 8.5 Neut % (Auto) 42.4 L Lymph % (Auto) 42.7 H Mcnairy % (Auto) 11.2 H Eos % (Auto) 3.4 Baso % (Auto) 0.3 Neut # (Auto) 2.9 Lymph # (Auto) 2.9 Mcnairy # (Auto) 0.8 Eos # (Auto) 0.2 Baso # (Auto) 0.0 Sodium 142 Potassium 3.8 Chloride 111 H Carbon Dioxide 24 Anion Gap 11 BUN 15 Creatinine 1.1 Est GFR ( Amer) > 60 Est GFR (Non-Af Amer) > 60 Random Glucose 89 Calcium 8.7 Total Bilirubin 0.6 AST 24 ALT 27 Alkaline Phosphatase 136 H Total Protein 7.0 Albumin 3.5 Globulin 3.4 Albumin/Globulin Ratio 1.0 Triglycerides 82 Cholesterol 159 LDL Cholesterol Direct 96 HDL Cholesterol 45 Thyroxine (T4) 6.79 TSH 3rd Generation 0.88 Assessment & Plan (1) Depression Status: Acute Comment: psyche is managing (2) Suicidal ideation Status: Acute Comment: psyche managing (3) CAD (coronary artery disease) Status: Chronic Comment: asymptomatic. continue ASA, Plavix, statin. was placed on heart healthy diet but requested to be put on regular diet (4) HTN (hypertension) Status: Chronic Comment: BP stable. continue Amlodipine (5) Cocaine use disorder Status: Acute Comment: psyche is managing
[2018-07-13] MEDS: Divalproex 500 mg DR(BID formulation) PO SCH ×3 (12:04→21:08)
[2018-07-13] MEDS ORDERED: Bismuth Subsalicylate 262 mg/15 ml Sus (240 ml) PO PRN (19:19)
[2018-07-14] MEDS: Divalproex 500 mg DR(BID formulation) PO SCH ×2 (08:20→17:13)
--- NOTE | 2018-07-14 11:38 | PCM.PYCHPN ---
Psychiatric Progress Note - Psychiatric Progress Note Patient seen today, length of contact: Pt evaluated, case discussed w/ team, chart reviewed Patient Chief Complaint: "I wanted to kill myself by taking rat poison." Problems Identified/Issues Discussed: Patient continues to report feeling depressed and hopeless. He is minimizing his cocaine abuse. He denies current AH/VH. He denies acute suicidal ideation and is able to contract for safety. Medication Change: No Medical Record Reviewed: Yes Consults ordered or reviewed: Medicine consult Mental Status Examination - Cognitive Function Orientation: Person, Place, Situation, Time Memory: Intact Attention: WNL Concentration: WNL Association: WNL Fund of Knowledge: [facility] Decription of patient's judgement and insights: Poor I/J re: chronic cocaine abuse - Mood Mood: Depressed - Affect Affect: Constricted, Depressed - Formal Thought Process Formal Thought Process: No Impairment Psychotic Thoughts and Behaviors: No AH/VH/paranoia/delusions - Suicidal Ideation Suicidal Ideation: No - Homicidal Ideation Homicidal Ideation: No Goal/Treatment Plan - Goal/Treatment Plan Need for Continued Stay: Remain at risks for inpatient hospitalization, Severe depression anxiety Progress Toward Problem(s) and Goals/Treatment Plan: Bipolar Disorder; Cocaine Use Disorder -Individual and group therapy -Medicine consult -Continue Depakote -Continue Zoloft and Risperdal -Psychoeducation -Disposition planning
[2018-07-14 13:02] LABS: SQUAMOUS EPITHIAL < 1 /hpf (0-5); URINE BILIRUBIN NEGATIVE (NEGATIVE); URINE BLOOD NEGATIVE (NEGATIVE); URINE CLARITY CLEAR (Clear); URINE COLOR YELLOW (YELLOW); URINE GLUCOSE (UA) 50 mg/dL (NEGATIVE); URINE LEUKOCYTE ESTERASE NEG Leu/uL (Negative); URINE PROTEIN NEGATIVE (NEGATIVE); URINE UROBILINOGEN 0.2-1.0 mg/dL (0.2-1.0)
[2018-07-15] MEDS: Divalproex 500 mg DR(BID formulation) PO SCH ×2 (08:40→17:18)
--- NOTE | 2018-07-15 09:46 | PCM.PYCHPN ---
Psychiatric Progress Note - Psychiatric Progress Note Patient seen today, length of contact: Pt evaluated, case discussed w/ team, chart reviewed Patient Chief Complaint: pt has remained very depressed and withdrawn and secludes himself in the room and remains with poor insight and need further stabilization. Medication Change: No Medical Record Reviewed: Yes Mental Status Examination - Cognitive Function Orientation: Person, Place, Situation, Time Memory: Intact Attention: WNL Concentration: WNL Association: WNL Fund of Knowledge: WNL - Mood Mood: Depressed - Affect Affect: Constricted, Depressed - Formal Thought Process Formal Thought Process: No Impairment - Suicidal Ideation Suicidal Ideation: No - Homicidal Ideation Homicidal Ideation: No Goal/Treatment Plan - Goal/Treatment Plan Need for Continued Stay: Remain at risks for inpatient hospitalization, Severe depression anxiety
[2018-07-16] MEDS: Divalproex 500 mg DR(BID formulation) PO SCH ×2 (09:00→17:14)
--- NOTE | 2018-07-16 10:49 | PCM.PYCHPN ---
Psychiatric Progress Note - Psychiatric Progress Note Patient seen today, length of contact: Pt evaluated, case discussed w/ team, chart reviewed Patient Chief Complaint: I still feel down Problems Identified/Issues Discussed: pt evaluated , seen in bed presenting with depressed mood and affect, denied acurrent active thoughts of self harm, denied command hallucinations DSM 5 Symptoms Update: depression cocaine use disorder Medication Change: No Medical Record Reviewed: Yes Mental Status Examination - Cognitive Function Orientation: Person, Place, Situation, Time Memory: Intact Attention: WNL Concentration: WNL Association: WNL Fund of Knowledge: WNL - Mood Mood: Depressed - Affect Affect: Constricted, Depressed - Formal Thought Process Formal Thought Process: No Impairment - Suicidal Ideation Suicidal Ideation: No - Homicidal Ideation Homicidal Ideation: No Goal/Treatment Plan - Goal/Treatment Plan Need for Continued Stay: Remain at risks for inpatient hospitalization, Severe depression anxiety Progress Toward Problem(s) and Goals/Treatment Plan: continue current medications disposition planning
[2018-07-17] MEDS: Divalproex 500 mg DR(BID formulation) PO SCH ×2 (08:33→17:18)
--- NOTE | 2018-07-17 09:51 | PCM.PYCHPN ---
Psychiatric Progress Note - Psychiatric Progress Note Patient seen today, length of contact: Pt evaluated, case discussed w/ team, chart reviewed Patient Chief Complaint: Depression Problems Identified/Issues Discussed: Patient reports that he continues to feel depressed, but states that his mood is improving. He denies acute AH/VH/SI/HI. He requested to discontinue the Risperdal as he is no longer experiencing AH and his psychotic symptoms could have been secondary to cocaine abuse. Psychoeducation provided on the importance of compliance with treatment and medications. Medication Change: Yes (Stop Risperdal) Medical Record Reviewed: Yes Consults ordered or reviewed: Medicine consult Mental Status Examination - Cognitive Function Orientation: Person, Place, Situation, Time Memory: Intact Attention: WNL Concentration: WNL Association: WNL Fund of Knowledge: [facility] Decription of patient's judgement and insights: Fair I/J - Mood Mood: Depressed - Affect Affect: Constricted - Speech Speech: Appropriate - Formal Thought Process Formal Thought Process: No Impairment Psychotic Thoughts and Behaviors: NO AH/VH/paranoia/delusions - Suicidal Ideation Suicidal Ideation: No - Homicidal Ideation Homicidal Ideation: No Goal/Treatment Plan - Goal/Treatment Plan Need for Continued Stay: Remain at risks for inpatient hospitalization, Severe depression anxiety Progress Toward Problem(s) and Goals/Treatment Plan: Bipolar Disorder; Cocaine Use Disorder -Individual and group therapy -Medicine consult -Continue Depakote -Continue Zoloft -Stop Risperdal -Psychoeducation -Disposition planning-likely discharge tomorrow if the patient continues to improve clinically Estimated Date of D/C: 07/18/18
[2018-07-17 15:45] VITALS: RESP 18
[2018-07-18 06:09] VITALS: BP 123/76; PULSE 87; TEMP 97.2
[2018-07-18] MEDS: Divalproex 500 mg DR(BID formulation) PO SCH (08:24)
--- NOTE | 2018-07-18 08:38 | PCM.PYCHDC ---
Mental Status Examination - Mental Status Examination Orientation: Person, Place, Situation, Time Memory: Intact Mood: Neutral Affect: Broad Speech: Appropriate Attention: WNL Concentration: WNL Association: WNL Fund of Knowledge: WNL Formal Thought Process: No Impairment Description of patient's judgement and insight: Fair I/J Psychotic Thoughts and Behaviors: NO AH/VH/paranoia/delusions Suicidal Ideation: No Current Homicidal Ideation?: No Discharge Summary - Discharge Note Reason for Hospitalization: HPI: 57 yo male w/ h/o Bipolar Disorder and Cocaine Use disorder, recently admitted to [facility] (07/02/18-07/07/18), presents w/ worsening depression and suicidal ideation to overdose on rat, w/ recent attempt 3 days ago by taking an excess of cocaine to try to induce a heart attack, worsening auditory hallucinations (CAH to kill himself), sleep and appetite disturbances in the context of continued cocaine abuse. +Feelings of hopelessness/helplessness. PPHx: H/o 3 psychiatric hospitalizations, most recent at [facility] (07/02/18-07/07/18). He was discharged on Depakote 500 mg PO BID, Zoloft 50 mg PO Daily and Trazodone 100 mg PO HS at that time. Reports being diagnosed w/ Bipolar Disorder 10 years ago. H/o prior suicide attempt 3 years ago by putting a gun in his mouth and pulling the trigger, but the gun jammed. PMHx: HTN, CAD (s/p 2 stents) on Plavix and Aspirin ALL: Fish, [place] SHx: Homeless, umemployed for 6 months, used to work as a printer in a printing factory; +Cocaine abuse, denies alcohol use; smokes 3 cig/day Consultations:: List each consultation separately and include: 1. Reason for request. 2. Findings. 3. Follow-up Consultations: Medicine consult Summary of Hospital Course include:: 1. Description of specific treatment plan utilized for patients during their course of treatmen. 2. Summarize the time- course for resolution of acute symptoms and/or regressed behaviors. 3. Describe issues identified and worked on during hospitalization. 4. Describe medication utilized. 5. Describe medical problems identified and treated. 6. Reassessment of suicide risk Summary of Hospital Course: Patient was admitted to the psychiatry unit. Individual and group therapy were provided. Patient was stabilized on Zoloft 100 mg PO Daily and Depakote 500 mg PO BID. He reports improvement in mood. He denies acute depression/anxiety/AH/VH/paranoia/delusions/SI/HI. Psychoeducation provided on the dangers of cocaine abuse. Patient is psychiatrically stable at this time. Patient informed to call 911, go to the nearest ER or call his doctor if he has suicidal ideation in the future. No acute suicidal ideation/plan/intent at this time. - Diagnosis (1) Bipolar I disorder Current Visit: No Status: Acute (2) Cocaine use disorder Current Visit: Yes Status: Acute - Final Diagnosis (DSM 5) Condition upon Discharge: STABLE DSM 5: Bipolar Disorder; Cocaine Use Disorder Disposition: HOME/ ROUTINE Follow-up Treatment Plan: Bipolar Disorder; Cocaine Use Disorder; patient is psychiatrically stable for discharge at this time. -Continue Depakote -Continue Zoloft -Psychoeducation provided Prescriptions/Medication Reconciliation: amLODIPine [Norvasc] 10 mg PO DAILY #30 tab Atorvastatin [Lipitor] 10 mg PO DAILY #30 tab Sertraline [Zoloft] 100 mg PO DAILY #30 tab - Smoking Cessation Smoking Cessation Medication prescribed: No Reason for not providing: Patient declined - Antipsychotic Medications Pt discharged on 2 or more routine antipsychotic medications: No
== END 2018-07-18 13:25 | disposition home or self-care (01) | DRG 430 ==
LOC: H.ER 00:21 → H.STEP 00:40
PROVIDERS: ADMIT Psychiatry & Neurology Psychiatry; ATTEND Psychiatry & Neurology Psychiatry
PROC: GZHZZZZ Group Psychotherapy (ICD-10-PCS; principal; 2018-07-13)
PROC: GZ58ZZZ Individual Psychotherapy, Cognitive-Behavioral (ICD-10-PCS; 2018-07-13)
DX: F31.9 Bipolar disorder, unspecified (principal); F14.10 Cocaine abuse, uncomplicated; R45.851 Suicidal ideations; I10 Essential (primary) hypertension; I25.10 Atherosclerotic heart disease of native coronary artery without angina pectoris; E78.00 Pure hypercholesterolemia, unspecified; Z91.5 Personal history of self-harm; F17.210 Nicotine dependence, cigarettes, uncomplicated; Z59.0 Homelessness; Z95.5 Presence of coronary angioplasty implant and graft